=== PATIENT | male | born 2005 | race Caucasian/White ===

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

== ENCOUNTER 2025-05-14 19:41 | Emergency (ER) | payer BC ==
[~2025-05-14] VITALS: Ht 175.3 cm; Wt 74.8 kg
== END 2025-05-14 20:35 | disposition home or self-care (01) ==
LOC: ED 19:41
DX: S90.31XA Contusion of right foot, initial encounter (principal); V86.95XA Unspecified occupant of 3- or 4- wheeled all-terrain vehicle (ATV) injured in nontraffic accident, initial encounter; Y93.89 Activity, other specified; Y92.89 Other specified places as the place of occurrence of the external cause; Y99.8 Other external cause status

== ENCOUNTER 2025-06-05 18:40 | Emergency (ER) | payer BC ==
[~2025-06-05] VITALS: Ht 175.2 cm; Wt 74.8 kg
== END 2025-06-05 20:56 | disposition home or self-care (01) ==
LOC: ED 18:40
DX: S06.0X0A Concussion without loss of consciousness, initial encounter (principal); Z88.8 Allergy status to other drugs, medicaments and biological substances; W18.09XA Striking against other object with subsequent fall, initial encounter; Y93.89 Activity, other specified; Y92.89 Other specified places as the place of occurrence of the external cause; Y99.8 Other external cause status